=== PATIENT | male | born 1965 | race Caucasian/White ===

== ENCOUNTER 2020-12-07 00:10 | Day surgery (SDC) | payer OTHER, SELFPAY ==
[2020-11-20 15:28] VITALS: BMI 23.6
[2020-12-07 07:08] VITALS: BP 141/112; PULSE 79; RESP 16; TEMP 35.6; O2SAT 100; BMI 23.1
[2020-12-07 07:17] VITALS: BP 132/94
[2020-12-07] MEDS: LACTATED RINGERS 1,000 ML 150 ML IV CONT (07:18)
--- NOTE | 2020-12-07 07:44 | WPDANESEPPF ---
Anes - Initial Pre Proc Eval Procedure: Operation Date: 12/07/20 08:00 Proposed Procedures p Screening Colonoscopy - Rodrigo Barnes MD Date/Time: 12/07/20 07:44 Surgeon: Rodrigo Barnes MD Pre Op Diagnosis: neoplasm screening Patient Data Age: 55 Gender: M Height: 1.73 m Weight: 68.9 kg Last Vital Signs Temp 96.0 F L 12/07/20 07:08 Pulse 79 12/07/20 07:08 Resp 16 12/07/20 07:08 BP 132/94 H 12/07/20 07:17 Pulse Ox 100 12/07/20 07:08 Allergies Allergy/AdvReac Type Severity Reaction Status Date / Time Sulfa (Sulfonamide Allergy Severe Rash Verified 12/07/20 07:06 Antibiotics) Home Medications Medication Instructions Recorded Confirmed Type No Home Medications 11/20/20 12/07/20 History Patient hx anesthesia problems: none Family hx anesthesia problems: none Results Review: All pre-operative results and documents have been reviewed as part of the pre-operative evaluation. PMFSH Past Medical History Medical History (Updated 12/07/20 @ 07:44 by Phil Correia MD) Dyslipidemia Social History Social History (Updated 07/02/20 @ 08:58 by Analia Samuels) Smoking status: Never smoker Alcohol intake: current Alcohol use details: only at parties Living arrangements: with family Spiritual care concerns: No Anes - Eval Final PreProcedure Day of Procedure 12/07/20 07:44 Patient weight: normal Heart: regular rate and rhythm Lungs: clear to auscultation Airway: Mallampati scale class II Neurological: alert and oriented Last oral intake: >/= 8 hours ASA classification: II Emergent: no Anesthetic plan: proceed Anesthesia type and monitoring: general GIVS and standard monitoring Results Review: All pre-operative results and documents have been reviewed as part of the pre-operative evaluation. Informed Consent: The patient's anesthetic plan and its attendant risks and benefits were discussed with the patient/family/POA. Questions were solicited and answers provided to the satisfaction of the patient/family/POA.
--- NOTE | 2020-12-07 07:46 | PM.HPGS ---
History of Present Illness History of Present Illness Consent: Risks, benefits, and alternatives have been discussed and questions answered. Patient agrees to proceed with procedure. Chief complaint: neoplasm screening Narrative: Pete Power is a 55 year old male here for first screening colonoscopy Review of Systems Constitutional: Constitutional: Denies headache(s) and Denies weakness Eyes: Eyes: Denies blurry vision ENT: Reports Normal hearing present, Denies headache(s) and Denies neck pain Cardiovascular: Cardiovascular: Denies chest pain and Denies dyspnea Respiratory: Respiratory: Denies dyspnea Gastrointestinal: Gastrointestinal: Reports no additional gastrointestinal complaints Genitourinary: Genitourinary: Denies dysuria Musculoskeletal: Musculoskeletal: Denies neck pain Integumentary/Breasts: Skin/Breast: Denies dry skin Neurologic: Reports Normal hearing present, Denies headache(s) and Denies weakness Psychiatric: Psychiatric: Denies anxiety Endocrine: Endocrine: Denies change in body appearance Hematologic/Lymphatic: Hematologic/Lymphatic: Denies easy bleeding Allergic/Immunologic: Allergic/Immunologic: Denies urticaria PMFSH Past Medical History Medical History (Updated 12/07/20 @ 07:44 by Phil Correia MD) Dyslipidemia Social History Social History (Updated 07/02/20 @ 08:58 by Analia Samuels) Smoking status: Never smoker Alcohol intake: current Alcohol use details: only at parties Living arrangements: with family Spiritual care concerns: No Meds Home Medications and Allergies Home Medications Medication Instructions Recorded Confirmed Type No Home Medications 11/20/20 12/07/20 History Allergies Allergy/AdvReac Type Severity Reaction Status Date / Time Sulfa (Sulfonamide Allergy Severe Rash Verified 12/07/20 07:06 Antibiotics) Vital Signs Vital Signs - 24 hr 12/07/20 07:08 12/07/20 07:17 Temperature 96.0 F L Pulse Rate 79 Respiratory Rate 16 Blood Pressure 141/112 H 132/94 H Pulse Oximetry 100 Exam Const: General: comfortable and no acute distress HENMT: General nose exam: Normal nares present Eyes: General: appearance normal, both eyes and all related structures Neck: Neck: no JVD Resp: Auscultation: clear to auscultation bilaterally Cardio: Rate: regular rate Rhythm: regular rhythm GI: Inspection: non-distended GI Palp: Yes Soft to palpation Skin: General skin exam: normal color Neuro: General: gait normal Speech: normal speech Extrem: General: normal to inspection Psych: Mental Status: mental status grossly normal Assessment and Plan Assessment and plan (1) Encounter for screening colonoscopy: Code(s): Z12.11 - Encounter for screening for malignant neoplasm of colon Status: Acute Assessment and Plan: colonoscopy
[2020-12-07 08:07] VITALS: BP 105/76; PULSE 72; O2SAT 100
[2020-12-07 08:17] VITALS: BP 115/76; PULSE 70; O2SAT 100
[2020-12-07 08:27] VITALS: BP 120/83; PULSE 85; O2SAT 98
== END 2020-12-07 08:55 | disposition home or self-care (01) ==
PROVIDERS: PCP Internal Medicine; Visit Provider Internal Medicine Gastroenterology
PROC: 0DJD8ZZ Inspection of Lower Intestinal Tract, Via Natural or Artificial Opening Endoscopic (ICD-10-PCS; CPT 45378; principal; 2020-12-07 08:00)
DX: Z12.11 Encounter for screening for malignant neoplasm of colon (principal); K64.8 Other hemorrhoids; E78.5 Hyperlipidemia, unspecified
CPT/HCPCS: 45378; J2704; J7120

== ENCOUNTER 2024-05-17 15:52 | Outpatient (CLI) | payer OTHER, SELFPAY ==
--- OUTSIDE RECORDS SUMMARY | 2024-05-17 17:17 | XMS_ITS | Clinical Summary ---
Author Organization [facility] Rachell Mckeondiomedes Address [address] [place] [address] Care Team Providers Care Pillowcase Sewer Name Role Phone Lm Bruno Gulshan AVINA Primary Care Provider [phone] Allergies Active Allergy Reactions Criticality Noted Date Comments Sulfa (Sulfonamide Antibiotics) Unknown 02/2021 Medications rosuvastatin (CRESTOR) 20 mg tablet Take 20 mg by mouth daily. 07/23/2021 Active Active Problems Problem Noted Date Diagnosed Date Erythrocytosis 09/16/2021 Family History Relation Name Status Comments Brother Alive Father Mother Sister Alive Social History Tobacco Use Types Packs/Day Years Used Date Smoking Tobacco: Never Alcohol Use Standard Drinks/Week Comments Yes 0 (1 standard drink = 0.6 oz pur e alcohol) Sex and Gender Information Value Date Recorded Sex Assigned at Not on file Legal Sex Male 1:16 PM CDT Gender Identity Not on file Sexual Orientation Not on file Last Filed Vital Signs Vital Sign Reading Time Taken Comments Blood Pressure 131/96 09/16/2021 3:22 PM CDT Pulse 74 09/16/2021 3:22 PM CDT Temperature 36.8 C (98.2 F) 09/16/2021 3:22 PM CDT Respiratory Rate - - Oxygen Saturation 98% 09/16/2021 3:22 PM CDT Inhaled Oxygen Concentration - - Weight 70.6 kg (155 lb 11.2 oz) 09/16/2021 3:22 PM CDT Height 172.7 cm (5' 8 ) 09/16/2021 3:22 PM CDT Body Mass Index 23.67 09/16/2021 3:22 PM CDT Plan of Treatment Health Maintenance Due Date Last Done Comments DTAP/TDAP/TD VACCINES (1 - Tdap) 09/21/1983 HEPATITIS B VACCINES (1 of 3 - 19+ 3-dose series) 09/21/1983 COLORECTAL SCREENING 2009 Colorectal Cancer Screening 2009 FIT-DNA Q 3 years 2009 FIT/FOBT Q 1 year 2009 Flex Sig/CT Colonography Q 5 years 2009 ZOSTER VACCINE (1 of 2) 2014 INFLUENZA VACCINE (#1) 2023 PNEUMOCOCCAL VACCINE 0-49 YEARS Aged Out No longer eligible based on patient's age to complete this topic Insurance [employer] PPO [id number] [place] [address] Care Teams Pillowcase Sewer Relationship Specialty Start Date End Date Lm Bruno DO [address] [facility] [address] [place] [address] PCP - General Internal Medicine 09/16/21
[2024-05-18 11:11] LABS: Kit Draw Collected
== END 2024-05-17 15:53 | disposition home or self-care (01) ==
LOC: ANHGOSHLAB 15:53
PROVIDERS: PCP Family Medicine; Visit Provider Family Medicine
DX: R73.9 Hyperglycemia, unspecified (principal); I10 Essential (primary) hypertension; E78.5 Hyperlipidemia, unspecified; E53.8 Deficiency of other specified B group vitamins; E55.9 Vitamin D deficiency, unspecified; Z12.5 Encounter for screening for malignant neoplasm of prostate; Z00.00 Encounter for general adult medical examination without abnormal findings
CPT/HCPCS: 36415

== ENCOUNTER 2024-12-27 11:23 | Outpatient (CLI) | payer OTHER, SELFPAY ==
--- OUTSIDE RECORDS SUMMARY | 2024-12-27 12:02 | XMS_ITS | Clinical Summary ---
Author Organization [facility] Rachell Mckeondiomedes Address [address] [place] [address] Care Team Providers Care Aquatic Instructor Name Role Phone Lm Bruno Gulshan AVINA Primary Care Provider [phone] Allergies Active Allergy Reactions Criticality Noted Date [...] 3:22 PM CDT Height 172.7 cm (5' 8) 09/16/2021 3:22 PM CDT Body Mass Index 23.67 09/16/2021 3:22 PM CDT Plan of Treatment Health Maintenance Due Date Last Done Comments DTAP/TDAP/TD VACCINES (1 - Tdap) 09/21/1983 COLORECTAL SCREENING 2009 Colorectal Cancer Screening 2009 FIT-DNA Q 3 years 2009 FIT/FOBT Q 1 year 2009 Flex Sig/CT Colonography Q 5 years 2009 ZOSTER VACCINE (1 of 2) 2014 INFLUENZA VACCINE (#1) 2024 RSV VACCINE (60+ or ) (1 - 1-dose 75+ series) 09/21/2039 HEPATITIS B VACCINES Aged Out No long er eligible based on patient's age to complete this topic Insurance [employer] PPO [id number] [place] [address] Care Teams Aquatic Instructor Relationship Specialty Start Date End Date Lm Bruno DO [address] [facility] [address] [place] [address] PCP - General Internal Medicine 09/16/21
[2024-12-27 13:08] LABS: Alanine Aminotransferase 36 U/L (6-50); Albumin Level 4.2 g/dL (3.5-5.1); Alkaline Phosphatase 89 U/L (38-126); Anion Gap 7 mmol/L (4-12); Aspartate Amino Transferase 57 U/L (17-59); Bilirubin,Total 1.4 mg/dL (0.2-1.3); Blood Urea Nitrogen 15 mg/dL (9-20); Calcium 8.7 mg/dL (8.4-10.2); Carbon Dioxide 30 mmol/L (22-30); Chloride 100 mmol/L (98-107); Cholesterol 166 mg/dL (0-200); Estimated Glomerular Filt Rate > 60; Glucose 88 mg/dL (65-110); HDL Direct 36 mg/dL; Potassium 4.4 mmol/L (3.4-5.0); Sodium 137 mmol/L (137-145); Total Protein 7.2 g/dL (6.3-8.2); Triglycerides 125 mg/dL (<150)
== END 2024-12-27 11:24 | disposition home or self-care (01) ==
LOC: ANHGOSHLAB 11:24
PROVIDERS: PCP Family Medicine; Visit Provider Family Medicine
DX: E78.5 Hyperlipidemia, unspecified (principal); Z79.899 Other long term (current) drug therapy; R17 Unspecified jaundice
CPT/HCPCS: 36415; 80053; 80061